=== PATIENT | male | born 1940 ===

== ENCOUNTER 2018-07-17 07:04 | Day surgery (SDC) | payer MEDICARE ==
[2018-07-17 07:35] VITALS: BMI 29.0
[2018-07-17] MEDS ORDERED: Lactated Ringer's 500 ML IV ONE (07:38)
[2018-07-17] MEDS ORDERED: Propofol 10 mg/ml Inj (20 ML) ONE (08:44)
[2018-07-17] MEDS ORDERED: ePHEDrine 50 mg/ml Inj ONE (08:59)
[2018-07-17 09:20] VITALS: BP 103/62; PULSE 84; RESP 14; TEMP 97; O2SAT 100
== END 2018-07-17 12:18 | disposition home or self-care (01) ==
LOC: H.ENDO 07:04
PROVIDERS: ATTEND Internal Medicine Gastroenterology
DX: Z12.11 Encounter for screening for malignant neoplasm of colon (principal); K64.8 Other hemorrhoids; I10 Essential (primary) hypertension; N40.0 Benign prostatic hyperplasia without lower urinary tract symptoms
CPT/HCPCS: 45378; J2001; J2704; J7120